=== PATIENT | male | born 2000 | race Caucasian/White ===

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

== ENCOUNTER 2021-04-14 10:26 | Emergency (ER) | payer OTHER ==
[~2021-04-14] VITALS: Ht 190.5 cm; Wt 99.8 kg
[~2021-04-14 10:26] MED LIST changes: +BUSPIRONE HCL10 MG PO; +XANAX 0.25 MG0.25 MG PO
[2021-04-14] MEDS ORDERED: VISTARIL 25 MG25 M1 PO (11:28)
[2021-04-14 11:36] VITALS: BP 135/97
== END 2021-04-14 11:37 | disposition home or self-care (01) ==
LOC: M.ERS 10:26
DX: F41.9 Anxiety disorder, unspecified (principal); F32.9 Major depressive disorder, single episode, unspecified; Z91.041 Radiographic dye allergy status